=== PATIENT | male | born 1955 | race American Indian/Alaskan Native ===

== ENCOUNTER 2017-02-28 12:31 | Inpatient (IN) | payer MEDICARE, MEDICAID ==
[2017-02-28 12:37] VITALS: RESP 18
[2017-02-28 13:23] LABS: BASO # 0.1 K/uL (0.0-0.2); BASO % 1.5 % (0.0-2.0); EOS # 0.1 K/uL (0.0-0.7); EOS % 0.7 % (0.0-4.0); HEMATOCRIT 43.4 % (35.0-51.0); LYMPH # 2.1 K/uL (1.0-4.3); LYMPH % 27.2 % (20.0-40.0); MEAN CELL VOLUME 88.7 fL (80.0-94.0); MEAN CORPUSCULAR HEMOGLOBIN 29.2 pg (27.0-31.0); MEAN CORPUSCULAR HGB CONC 32.9 g/dL (33.0-37.0); MEAN PLATELET VOLUME 8.8 fL (7.2-11.7); MONO # 0.4 K/uL (0.0-0.8); MONO % 4.8 % (0.0-10.0); RED CELL DISTRIBUTION WIDTH 14.1 % (11.5-14.5); WHITE BLOOD COUNT 7.6 K/uL (4.8-10.8)
[2017-02-28 13:30] LABS: URINE BILIRUBIN NEGATIVE (NEGATIVE); URINE BLOOD NEGATIVE (NEGATIVE); URINE COLOR Yellow (YELLOW); URINE GLUCOSE (UA) NORMAL (Normal); URINE KETONE NEGATIVE (NEGATIVE); URINE LEUKOCYTE ESTERASE NEG Leu/uL (Negative); URINE PROTEIN NEGATIVE (NEGATIVE); URINE UROBILINOGEN NORMAL mg/dL (0.2-1.0); WBC URINE 1 /hpf (0-5)
[2017-02-28 13:35] LABS: CHLORIDE 105 mmol/L (98-107)
[2017-02-28 13:36] LABS: POTASSIUM 3.7 mmol/L (3.6-5.2); SODIUM 137 mmol/L (132-148)
[2017-02-28 13:38] LABS: ALB/GLOB RATIO 1.6 (1.0-2.1); BILIRUBIN,TOTAL 0.3 mg/dL (0.2-1.3); CARBON DIOXIDE 26 mmol/L (22-30); GFR AFRICAN-AMERICAN > 60
[2017-02-28 13:39] LABS: ALKALINE PHOSPHATASE 95 U/L (38-126); ALT/SGPT 36 U/L (21-72); AST/SGOT 28 U/L (17-59); BLOOD UREA NITROGEN 9 mg/dL (9-20); CALCIUM 9.4 mg/dl (8.6-10.4); GLUCOSE,RANDOM 89 mg/dL (75-110)
[2017-02-28 13:40] LABS: ALCOHOL SERUM < 10 mg/dl (0-10)
--- NOTE | 2017-02-28 13:49 | C.PDOC ---
History Of Present Illness 61 year old patient, with a past medical history of hypertension and HIV, presents to the ED requesting detox from alcohol. No complaints at this time. Denies SI, HI or other drug use. Time Seen by Provider: 02/28/17 13:00 Chief Complaint (Nursing): Substance Abuse History Per: Patient Severity: None Pain Scale Rating Of: 0 Recent travel outside of the [place]: No Past Medical History Reviewed: Historical Data, Nursing Documentation, Vital Signs Vital Signs: Last Vital Signs Temp 98 F 02/28/17 20:00 Pulse 76 02/28/17 20:00 Resp 18 02/28/17 20:00 BP 107/73 02/28/17 20:00 Pulse Ox 98 02/28/17 20:00 - Medical History PMH: HIV, HTN - [facility] Procedures ANESTH INJECT-SPIN CANAL (02/16/12) DETOXIFICATION SERVICES FOR SUBSTANCE ABUSE TREATMENT (02/28/17) INDIV PSYCHOTHERAPY FOR SUBSTANCE ABUSE TREATMENT, SUPPORT (02/28/17) INJECT STEROID (02/16/12) LUMBOSAC SPINE X-RAY NEC (02/16/12) SPINAL CANAL INJECT NEC (02/16/12) Family History: States: Unknown Family Hx - Social History Hx Tobacco Use: No Hx Alcohol Use: No (fORMER) Hx Substance Use: No - Immunization History Hx Tetanus Toxoid Vaccination: No Hx Influenza Vaccination: Yes Hx Pneumococcal Vaccination: Yes Review Of Systems Except As Marked, All Systems Reviewed And Found Negative. Psych: Positive for: Other (alcohol use) Physical Exam - Physical Exam Appears: Non-toxic, No Acute Distress Skin: Warm, Dry Head: Atraumatic, Normacephalic, No Tenderness, No Swelling Eye(s): bilateral: Normal Inspection Neck: Normal ROM, Supple Chest: Symmetrical Cardiovascular: Rhythm Regular Respiratory: Normal Breath Sounds, No Accessory Muscle Use, No Rales, No Rhonchi , No Wheezing Back: Normal Inspection, No CVA Tenderness Extremity: Normal ROM Neurological/Psych: Oriented x3, Normal Speech ED Course And Treatment - Laboratory Results Result Diagrams: 02/28/17 13:19 02/28/17 13:19 Lab Interpretation: No Acute Changes O2 Sat by Pulse Oximetry: 100 (room air) Pulse Ox Interpretation: Normal Medical Decision Making Medical Decision Making: Impression: 61 y/o male with Plan: * Labs * Crisis Evaluation * Reassess and disposition Progress: Labs ordered and reviewed. In my clinical judgment patient is medically cleared and stable for psychiatric admission. drying can worker contacted for evaluation. As per CW patient is to be admitted for detox under Dr Reed service for Alcohol use disorder severe Disposition - Disposition Disposition: HOSPITALIZED Disposition Time: 14:25 Condition: STABLE - POA Present On Arrival: None - Clinical Impression Clinical Impression: Alcohol dependence - PA / COLOR PRINTER OPERATOR / Resident Statement MD/DO has reviewed & agrees with the documentation as recorded. - Scribe Statement The provider has reviewed the documentation as recorded by the Scribe Rosi Kamara All medical record entries made by the Scribe were at my direction and personally dictated by me. I have reviewed the chart and agree that the record accurately reflects my personal performance of the history, physical exam, medical decision making, and the department course for this patient. I have also personally directed, reviewed, and agree with the discharge instructions and disposition. Decision To Admit - Pt Status Changed To: Hospital Disposition Of: Inpatient - Admit Certification Admit to Inpatient:: After my assessment, the patient will require hospitalization for at least two midnights. This is because of the severity of symptoms shown, intensity of services needed, and/or the medical risk in this patient being treated as an outpatient. - InPatient: Physician Admission Certification: I certify that this patient requires 2 or more midnights of care for the following reason:: patient is to be admitted for detox under Dr Reed service for Alcohol use disorder severe - . Bed Request Type: Detox Admitting Physician: Torrie Reed Patient Diagnosis: Alcohol dependence
[2017-02-28] MEDS ORDERED: Efavirenz/Emtricitabine/Teno 1 TAB PO SCH (22:00)
[2017-02-28 22:05] VITALS: BP 107/73; PULSE 76; TEMP 98
--- NOTE | 2017-03-01 08:45 | PCM.PSYCH ---
Initial Psychiatric Evaluation - Initial Psychiatric Evaluation Type of Admission: Voluntary Legal Status: Capacity Chief Complaint (in patient's own words): I came to get help History of Present Illness and Precipitating Events: Patient is a 61 year old AA male with a lifelong history of substance abuse ( which includes alcohol abuse while in grammar school) self-referred to [facility] for detox admission. Patient reports abusing marijuana , crack cocaine and alcohol. Patient last used last night. Patient states last night I knew I had to surrender. Patient reports he has tried to detox on his own but its not working. Patient has a history of AA involvement on and off for the past 9 years. Patient denies any psych history. Patient denies S/H/I. But states I am killing myself everyday with drugs and alcohol. Patient drinks varying amounts of alcohol daily. Yesterday he drank 4 cans of beer, LI Iced Tea, [place] and a couple of small bottles of Blackberry joyce. Patient smoked approximately $100 worth of cocaine yesterday as well. Patient reports he started using cocaine when he was 27 years old. Patient is beginning to experience withdrawal symptoms: anxiety, nausea/ vomiting and abdominal cramping. Patient was diagnosed HIV positive 30 years ago. He reports that his T-Cells are very Current Medications: Active Medications Generic Name Dose Route Start Last Admin Trade Name Erenq PRN Reason Stop Dose Admin Chlordiazepoxide 25 mg 02/28/17 18:00 03/01/17 06:30 Librium PO 03/04/17 17:59 25 mg Q6 TESFAYE Administration Taper Chlordiazepoxide 25 mg 02/28/17 15:50 02/28/17 16:27 Librium PO 25 mg Q4H PRN Administration Alcohol Withdrawal Clonidine HCl 0.1 mg 02/28/17 16:09 02/28/17 16:27 Catapres PO 0.1 mg Q8 PRN Administration alcohol withdrawal Efavirenz/Emtricitabine/Tenofovir 1 tab 02/28/17 22:00 02/28/17 22:05 Atripla 600 Mg-200 Mg-300 Mg PO 1 tab HS TESFAYE Administration Folic Acid 1 mg 03/01/17 10:00 Folic Acid PO DAILY TESFAYE Hydroxyzine HCl 25 mg 02/28/17 16:25 02/28/17 16:29 Atarax PO 25 mg Q6 PRN Administration Anxiety Lisinopril 20 mg 03/01/17 10:00 Zestril PO DAILY TESFAYE Multivitamins 1 tab 03/01/17 10:00 Hexavitamin PO DAILY TESFAYE Thiamine HCl 100 mg 03/01/17 10:00 Vitamin B1 Tab PO DAILY TESFAYE Trazodone HCl 50 mg 02/28/17 15:50 Desyrel PO HS PRN Insomnia Past Psychiatric History - Past Psychiatric History Previous Treatment History: Inpatient Pertinent Medical Hx (Current Medical&Sleep Prob, Allergies): Allergies Allergy/AdvReac Type Severity Reaction Status Date / Time No Known Allergies Allergy Verified 02/28/17 12:38 Efavirenz/Emtricitabine/Teno [Atripla 600 MG-200 MG-300 MG] 1 tab PO HS Lisinopril 20 mg PO DAILY 02/16/15 Loratadine [Claritin] 10 mg PO DAILY #30 tab 07/07/16 hydroCHLOROthiazide [Hydrodiuril] 25 mg PO DAILY 07/07/16 Review of Systems - Review of Systems All systems: reviewed and no additional remarkable complaints except - Psychiatric Psychiatric: Anxiety, Irritability Mental Status Examination - Personal Presentation Personal Presentation: Looks stated age - Affect Affect: Constricted - Motor Activity Motor Activity: Calm - Reliability in Providing Information Reliability in Providing Information: Good - Speech Speech: Organized - Mood Mood: Anxious - Formal Thought Process Formal Thought Process: No Impairment - Obsessions/Compulsions Obsessions: No Compulsions: No - Cognitive Functions Orientation: Person, Place, Situation Sensorium: Alert DSM 5 DX - DSM 5 DSM 5 Diagnosis: Alcohol use disorder severe Alcohol withdrawn Cocaine use disorder severe - Recommended/Plan of Treatment Treatment Recommendations and Plan of Treatment: Alcohol use disorder severe CBT Psychoeducation Supportive therapy, individual therapy Use WA for abstinence Alcohol withdrawal uncomplicated CBT Psychoeducation Supportive therapy, individual therapy Librium when necessary Start Librium taper Start folic acid/thiamine/multivitamin Cocaine use disorder severe Monitor signs and symptoms Use WA for abstinence HTN Monitor signs and symptoms HIV Monitor signs and symptoms - Smoking Cessation Smoking Cessation Initiated: No
[2017-03-01] MEDS ORDERED: Multiple Vitamins Tab PO SCH (10:00)
--- NOTE | 2017-03-01 10:48 | PCM.PYCHDC ---
Mental Status Examination - Mental Status Examination Orientation: Person, Place, Situation, Time Memory: Intact Mood: Neutral Affect: Broad Speech: Loud Attention: WNL Concentration: WNL Association: WNL Fund of Knowledge: WNL Formal Thought Process: No Impairment Description of patient's judgement and insight: partially impaired Psychotic Thoughts and Behaviors: denies any AVH Suicidal Ideation: No Current Homicidal Ideation?: No Discharge Summary - Discharge Note Reason for Hospitalization: Patient is a 61 year old AA male with a lifelong history of substance abuse ( which includes alcohol abuse while in grammar school) self-referred to [facility] for detox admission. Patient reports abusing marijuana , crack cocaine and alcohol. Patient last used last night. Patient states last night I knew I had to surrender. Patient reports he has tried to detox on his own but its not working. Patient has a history of AA involvement on and off for the past 9 years. Patient denies any psych history. Patient denies S/H/I. But states I am killing myself everyday with drugs and alcohol. Patient drinks varying amounts of alcohol daily. Yesterday he drank 4 cans of beer, LI Iced Tea, [place] and a couple of small bottles of Blackberry joyce. Patient smoked approximately $100 worth of cocaine yesterday as well. Patient reports he started using cocaine when he was 27 years old. Patient is beginning to experience withdrawal symptoms: anxiety, nausea/ vomiting and abdominal cramping. Patient was diagnosed HIV positive 30 years ago. He reports that his T-Cells are very Consultations:: List each consultation separately and include: 1. Reason for request. 2. Findings. 3. Follow-up Summary of Hospital Course include:: 1. Description of specific treatment plan utilized for patients during their course of treatmen. 2. Summarize the time- course for resolution of acute symptoms and/or regressed behaviors. 3. Describe issues identified and worked on during hospitalization. 4. Describe medication utilized. 5. Describe medical problems identified and treated. 6. Reassessment of suicide risk Summary of Hospital Course: During the course of his stay, pt started taking withdrawal medications but he signed himself out AMA. As per the patient he is doing much better and his withdrawal symptoms are getting better and he does not need 4 days detox. Patient remained calm and cooperative and denied any shakes, sweating or any other withdrawal symptoms. He denied any feelings of hopelessness, helplessness , and worthlessness. He denied any suicidal ideation or homicidal ideation, and denied any auditory or visual hallucinations. - Final Diagnosis (DSM 5) Condition upon Discharge: GOOD DSM 5: Alcohol use disorder severe Alcohol withdrawn Cocaine use disorder severe Disposition: AGAINST MEDICAL ADVICE Follow-up Treatment Plan: Education: Pt was educated and counseled about the risks and benefits of taking and not taking medications. Pt was educated and counseled about the risks of drinking and abusing drugs. Pt was educated and counseled to go to the ER or call 911 if pt develop suicidal ideation or homicidal ideation, worsening of symptoms or severe side effects of the meds. - Smoking Cessation Smoking Cessation Medication prescribed: No - Antipsychotic Medications Pt discharged on 2 or more routine antipsychotic medications: No
[2017-03-10 18:06] VITALS: O2SAT 100
== END 2017-03-01 08:45 | disposition left against medical advice (07) | DRG 894 ==
LOC: C.ER 12:31 → C.7D 14:27
PROVIDERS: ADMIT Psychiatry & Neurology Psychiatry; ATTEND Psychiatry & Neurology Psychiatry
PROC: HZ2ZZZZ Detoxification Services for Substance Abuse Treatment (ICD-10-PCS; principal; 2017-02-28)
PROC: HZ59ZZZ Individual Psychotherapy for Substance Abuse Treatment, Supportive (ICD-10-PCS; 2017-02-28)
DX: F10.230 Alcohol dependence with withdrawal, uncomplicated (principal); F14.20 Cocaine dependence, uncomplicated; I10 Essential (primary) hypertension; F12.10 Cannabis abuse, uncomplicated; Z21 Asymptomatic human immunodeficiency virus [HIV] infection status

== ENCOUNTER 2017-03-12 11:46 | Emergency (ER) | payer MEDICARE, MEDICAID | END 2017-03-12 12:30 | disposition home or self-care (01) | LOC: C.ER 11:46 | DX: F10.20 Alcohol dependence, uncomplicated (principal); F14.20 Cocaine dependence, uncomplicated; Y90.9 Presence of alcohol in blood, level not specified ==

== ENCOUNTER 2017-03-13 11:54 | Emergency (ER) | payer MEDICARE, MEDICAID ==
[2017-03-13 11:58] VITALS: BP 124/82; PULSE 71; RESP 16; TEMP 97.6; O2SAT 98
--- NOTE | 2017-03-13 12:55 | C.PDOC ---
History Of Present Illness 61-year-old male, presents to the emergency department with requesting detox from alcohol. Patients last drink was last night. He also notes using cocaine. Denies vomiting, withdrawal, SI/HI. Time Seen by Provider: 03/13/17 12:25 Chief Complaint (Nursing): Substance Abuse History Per: Patient Current Symptoms Are (Timing): Still Present Modifying Factor(s): Alcohol, Cocaine Past Medical History Reviewed: Historical Data, Nursing Documentation, Vital Signs Vital Signs: Last Vital Signs Temp 97.6 F 03/13/17 11:57 Pulse 71 03/13/17 11:57 Resp 16 03/13/17 11:57 BP 124/82 03/13/17 11:57 Pulse Ox 98 03/13/17 12:56 - Medical History PMH: HIV, HTN Denies: Diabetes, Hepatitis, Seizures, Sexually Transmitted Disease - [facility] Procedures ANESTH INJECT-SPIN CANAL (02/16/12) DETOXIFICATION SERVICES FOR SUBSTANCE ABUSE TREATMENT (02/28/17) INDIV PSYCHOTHERAPY FOR SUBSTANCE ABUSE TREATMENT, SUPPORT (02/28/17) INJECT STEROID (02/16/12) LUMBOSAC SPINE X-RAY NEC (02/16/12) SPINAL CANAL INJECT NEC (02/16/12) Family History: States: No Known Family Hx - Social History Hx Tobacco Use: No Hx Alcohol Use: Yes Hx Substance Use: Yes - Immunization History Hx Tetanus Toxoid Vaccination: No Hx Influenza Vaccination: Yes Hx Pneumococcal Vaccination: Yes Review Of Systems Except As Marked, All Systems Reviewed And Found Negative. Constitutional: Negative for: Fever Cardiovascular: Negative for: Chest Pain Respiratory: Negative for: Shortness of Breath Gastrointestinal: Negative for: Vomiting Psych: Negative for: Suicidal ideation Physical Exam - Physical Exam Appears: Non-toxic, No Acute Distress Skin: Warm, Dry, No Rash Eye(s): bilateral: Normal Inspection Oral Mucosa: Moist Lips: Normal Appearing Neck: Normal ROM Respiratory: No Accessory Muscle Use Extremity: Normal ROM Neurological/Psych: Oriented x3 ED Course And Treatment O2 Sat by Pulse Oximetry: 98 Pulse Ox Interpretation: Normal Medical Decision Making Medical Decision Making: Case was discussed w/ poultry husbandry worker, who states that there are no detox beds available. Additionally patient had signed out AMA from detox last week. poultry husbandry worker speaks with patient at bedside and made aware he is ineligible for detox at this time. Pt will be discharged w/ a list of detox programs, and information for the detox co-ordinator/instructions Disposition Counseled Patient/Family Regarding: Need For Followup - Disposition Disposition: HOME/ ROUTINE Disposition Time: 12:50 Condition: STABLE Instructions: Polysubstance Abuse (ED) - POA Present On Arrival: None - Clinical Impression Clinical Impression: Alcohol dependence - Scribe Statement The provider has reviewed the documentation as recorded by the Issa Mitchell All medical record entries made by the Issa were at my direction and personally dictated by me. I have reviewed the chart and agree that the record accurately reflects my personal performance of the history, physical exam, medical decision making, and the department course for this patient. I have also personally directed, reviewed, and agree with the discharge instructions and disposition.
== END 2017-03-13 12:50 | disposition home or self-care (01) ==
LOC: C.ER 11:54
DX: F10.20 Alcohol dependence, uncomplicated (principal); F14.10 Cocaine abuse, uncomplicated; Y90.9 Presence of alcohol in blood, level not specified

== ENCOUNTER 2017-03-14 12:11 | Observation (INO) | payer MEDICARE, MEDICAID ==
[2017-03-14] MEDS ORDERED: Sodium Chloride 0.9% 1,000 ML IV ONE (12:47)
[2017-03-14] MEDS ORDERED: Sodium Chloride 0.9% 1,000 ML ONE (13:03)
[2017-03-14 13:05] LABS: BASO # 0.1 K/uL (0.0-0.2); BASO % 0.9 % (0.0-2.0); EOS % 0.5 % (0.0-4.0); HEMATOCRIT 42.7 % (35.0-51.0); LYMPH # 1.5 K/uL (1.0-4.3); LYMPH % 25.3 % (20.0-40.0); MEAN CELL VOLUME 88.3 fL (80.0-94.0); MEAN CORPUSCULAR HEMOGLOBIN 29.1 pg (27.0-31.0); MEAN CORPUSCULAR HGB CONC 32.9 g/dL (33.0-37.0); MEAN PLATELET VOLUME 8.5 fL (7.2-11.7); MONO # 0.3 K/uL (0.0-0.8); MONO % 5.4 % (0.0-10.0); NRBC % 0.1 % (0.0-2.0); RED CELL DISTRIBUTION WIDTH 14.1 % (11.5-14.5); WHITE BLOOD COUNT 5.8 K/uL (4.8-10.8)
[2017-03-14 13:10] LABS: CHLORIDE 105 mmol/L (98-107); SODIUM 138 mmol/L (132-148)
[2017-03-14 13:11] LABS: POTASSIUM 4.1 mmol/L (3.6-5.2)
[2017-03-14 13:13] LABS: ALB/GLOB RATIO 1.5 (1.0-2.1); ALKALINE PHOSPHATASE 91 U/L (38-126); ALT/SGPT 24 U/L (21-72); AST/SGOT 20 U/L (17-59); BILIRUBIN,TOTAL 0.5 mg/dL (0.2-1.3); BLOOD UREA NITROGEN 14 mg/dL (9-20); CALCIUM 8.3 mg/dl (8.6-10.4); CARBON DIOXIDE 23 mmol/L (22-30); GFR AFRICAN-AMERICAN > 60; GLUCOSE,RANDOM 83 mg/dL (75-110); TOTAL PROTEIN 6.5 g/dL (6.3-8.3)
[2017-03-14 13:14] LABS: ALCOHOL SERUM < 10 mg/dl (0-10)
--- NOTE | 2017-03-14 13:36 | C.PDOC ---
History Of Present Illness 61 y/o male that sent to the emergency department by Dr. Enciso, for evaluation of cough, nausea, and epigastric abdominal pain for the past several days. Patient has history of alcohol and cocaine abuse, and states last use was yesterday. He denies tremors, chest pain, palpitations, shortness of breath , cough, vomiting, diarrhea, fever/chills. Time Seen by Provider: 03/14/17 12:36 Chief Complaint (Nursing): Abdominal Pain History Per: Patient History/Exam Limitations: no limitations Onset/Duration Of Symptoms: Days (several days) Current Symptoms Are (Timing): Still Present Location Of Pain/Discomfort: Epigastric Radiation Of Pain To:: None Quality Of Discomfort: "Pain" Associated Symptoms: Nausea, Vomiting. denies: Fever, Chills, Diarrhea, Loss Of Appetite, Back Pain, Chest Pain, Constipation, Urinary Symptoms Exacerbating Factors: None Alleviating Factors: None Recent travel outside of the [place]: No Additional History Per: Patient Past Medical History Reviewed: Historical Data, Nursing Documentation, Vital Signs Vital Signs: Last Vital Signs Temp 97.3 F L 03/16/17 07:49 Pulse 56 L 03/16/17 07:49 Resp 20 03/16/17 07:49 BP 156/92 H 03/16/17 07:49 Pulse Ox 100 03/27/17 07:38 - Medical History PMH: HIV, HTN Denies: Diabetes, Hepatitis, Seizures, Sexually Transmitted Disease - [facility] Procedures ANESTH INJECT-SPIN CANAL (02/16/12) DETOXIFICATION SERVICES FOR SUBSTANCE ABUSE TREATMENT (02/28/17) INDIV PSYCHOTHERAPY FOR SUBSTANCE ABUSE TREATMENT, SUPPORT (02/28/17) INJECT STEROID (02/16/12) LUMBOSAC SPINE X-RAY NEC (02/16/12) SPINAL CANAL INJECT NEC (02/16/12) Family History: States: No Known Family Hx - Social History Hx Tobacco Use: No Hx Alcohol Use: Yes (fORMER) Hx Substance Use: Yes - Immunization History Hx Tetanus Toxoid Vaccination: Yes Hx Influenza Vaccination: Yes Hx Pneumococcal Vaccination: No Review Of Systems Except As Marked, All Systems Reviewed And Found Negative. Constitutional: Negative for: Fever, Chills Cardiovascular: Negative for: Chest Pain, Palpitations Respiratory: Negative for: Cough, Shortness of Breath Gastrointestinal: Positive for: Nausea, Vomiting, Abdominal Pain (epigastric). Negative for: Diarrhea, Constipation, Hematemesis Genitourinary: Negative for: Dysuria, Frequency, Hematuria Musculoskeletal: Negative for: Back Pain Physical Exam - Physical Exam Appears: Non-toxic, No Acute Distress, Other (comfortable) Skin: Normal Color, Warm, Dry Head: Atraumatic, Normacephalic Eye(s): bilateral: Normal Inspection, EOMI Neck: Normal ROM, Supple Chest: Symmetrical, No Tenderness Cardiovascular: Rhythm Regular, No Murmur Respiratory: Normal Breath Sounds, No Rales, No Rhonchi, No Wheezing Gastrointestinal/Abdominal: Soft, Tenderness (mild epigastric), No Guarding, No Rebound, Other ((-) Villatoro's) Back: No CVA Tenderness Extremity: Normal ROM Neurological/Psych: Oriented x3, Normal Speech, Normal Cognition ED Course And Treatment - Laboratory Results Result Diagrams: 03/14/17 12:59 03/14/17 12:59 ECG: Interpreted By Me, Viewed By Me (NSR 61 bpm, normal axis, ST elevations in V2, V3 due to early repol - unchanged from prior EKG, no acute ST/T wave changes ) ECG Interpretation: No Acute Changes O2 Sat by Pulse Oximetry: 100 (on RA) Pulse Ox Interpretation: Normal - Other Rad CXR X-Ray: Viewed By Me, Read By Radiologist Interpretation: FINDINGS: LUNGS: Mild venous congestion. Minimal atelectatic changes at the right lung base. PLEURA: Minimal blunting of the left costophrenic angle which may represent trace effusion versus pleural thickening. CARDIOVASCULAR: Normal. OSSEOUS STRUCTURES: No significant abnormalities. VISUALIZED UPPER ABDOMEN: Normal. OTHER FINDINGS: None. IMPRESSION: Mild venous congestion. Minimal atelectatic changes at the right lung base. Minimal blunting of the left costophrenic angle which may represent trace effusion versus pleural thickening. Progress Note: Blood work, UA, UDS ordered and reviewed. Patient given IV NS bolus, IV pepcid, IV zofran. Patient made aware that no detox beds are available at this time. - Physician Consult Information Physician Contacted: Mark Enciso Outcome Of Conversation: Discussed patient with Dr. Enciso, he agrees with obs to his service for alcohol/cocaine dependence. Pyschiatric consult entered. Disposition - Disposition Disposition: HOSPITALIZED Disposition Time: 13:33 Condition: STABLE - Clinical Impression Clinical Impression: Alcohol dependence, Cocaine dependence, Epigastric abdominal pain - Scribe Statement The provider has reviewed the documentation as recorded by the Luisibe Jonh Kamara Provider Attestation: All medical record entries made by the Issa were at my direction and personally dictated by me. I have reviewed the chart and agree that the record accurately reflects my personal performance of the history, physical exam, medical decision making, and the department course for this patient. I have also personally directed, reviewed, and agree with the discharge instructions and disposition. Decision To Admit - Pt Status Changed To: Hospital Disposition Of: Observation - . Bed Request Type: Regular Admitting Physician: Mark Enciso Patient Diagnosis: Alcohol dependence, Cocaine dependence, Epigastric abdominal pain
[2017-03-14 13:37] LABS: RBC URINE 1 /hpf (0-3); URINE BILIRUBIN NEGATIVE (NEGATIVE); URINE BLOOD NEGATIVE (NEGATIVE); URINE COLOR Yellow (YELLOW); URINE GLUCOSE (UA) NORMAL (Normal); URINE KETONE NEGATIVE (NEGATIVE); URINE LEUKOCYTE ESTERASE NEG Leu/uL (Negative); URINE PROTEIN NEGATIVE (NEGATIVE); URINE UROBILINOGEN NORMAL mg/dL (0.2-1.0)
[2017-03-14 13:48] LABS: WBC URINE 5 /hpf (0-5)
--- NOTE | 2017-03-14 14:03 | RAD ---
PROCEDURE: CHEST RADIOGRAPH, 1 VIEW HISTORY: eval COMPARISON: None available. FINDINGS: LUNGS: Mild venous congestion. Minimal atelectatic changes at the right lung base. PLEURA: Minimal blunting of the left costophrenic angle which may represent trace effusion versus pleural thickening. CARDIOVASCULAR: Normal. OSSEOUS STRUCTURES: No significant abnormalities. VISUALIZED UPPER ABDOMEN: Normal. OTHER FINDINGS: None. IMPRESSION: Mild venous congestion. Minimal atelectatic changes at the right lung base. Minimal blunting of the left costophrenic angle which may represent trace effusion versus pleural thickening.
[2017-03-14] MEDS: Dextrose 5%/0.45% NS 1,000 ML IV SCH (16:20)
--- NOTE | 2017-03-14 16:39 | PCM.PSYCH ---
Initial Psychiatric Evaluation - Initial Psychiatric Evaluation Legal Status: Capacity Chief Complaint (in patient's own words): Pt WAS ADMITTED FOR EPIGASTRIC PAIN. i NEED TO TAKE CARE OF WHAT IS WRONG WITH ME NOW. Patient's Reaction to Hospitalization: I FEEL BETTER History of Present Illness and Precipitating Events: PT IS 61 YEAR OLD SINGLE, DOMICILED, RETIRED BLACK MALE WHO SUFFERS FROM HIV. PT ALSO USES COCAINE AND ALCOHOL. PT STARTED DRINKING AGE V16 BUT STATES ALCOHOL BECAME A PROBLEM ABOUT 5-7 YEARS AGO. PT DRINKS SEVERAL CANS OF BEER AND SOME SHOTS OF HARD LIQUOR. PT ALSO USES COCAINE. HE SPENDS ABOUT 200 DOLLARS A DAY. HE STARTED USING COCAINE [id number] YEARS AGO. PT HAS BEEN IN REHAB TWICE AT THE SAME PLACE, [facility] [place], ABOUT 17 YEARS APART. PT'S LONGEST PERIOD OF SOBRIETY WAS 57 MONTHS. PT ATTENDS AA AND NA MEETINGS. HE WANTS TO GET A NEW SPONSOR. PT HAS NO LEGAL, , OR PSYCHIATRIC HISTORY. HE WENT UP TO 10TH GRADE. 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 PT'S FATHER IS AND MOTHER IS LIVING. PT HAD 2 BROTHERS BUT BOTH OF THEM ARE . PT HAS NO CHILDREN Current Medications: Active Medications Generic Name Dose Route Start Last Admin Trade Name Freq PRN Reason Stop Dose Admin Chlordiazepoxide 0 mg 03/14/17 18:00 Librium PO 03/18/17 17:59 Q6 TESFAYE Taper Chlordiazepoxide 25 mg 03/14/17 14:50 Librium PO Q4H PRN Alcohol Withdrawal Clonidine HCl 0.1 mg 03/14/17 16:00 03/14/17 16:20 Catapres PO 0.1 mg Q8H TESFAYE Administration Enoxaparin Sodium 40 mg 03/15/17 10:00 Lovenox SC DAILY TESFAYE Dextrose/Sodium Chloride 1,000 mls @ 100 mls/hr 03/14/17 16:00 03/14/17 16:20 Dextrose 5%/0.45% Ns 1000 Ml IV 100 mls/hr .Q10H TESFAYE Administration Past Psychiatric History - Past Psychiatric History Previous Treatment History: None Pertinent Medical Hx (Current Medical&Sleep Prob, Allergies): Allergies Allergy/AdvReac Type Severity Reaction Status Date / Time No Known Allergies Allergy Verified 03/14/17 12:39 Efavirenz/Emtricitabine/Teno [Atripla 600 MG-200 MG-300 MG] 1 tab PO HS Lisinopril 20 mg PO DAILY 02/16/15 Loratadine [Claritin] 10 mg PO DAILY #30 tab 07/07/16 hydroCHLOROthiazide [Hydrodiuril] 25 mg PO DAILY 07/07/16 Review of Systems - Constitutional Constitutional: Malaise - EENT Eyes: UNREMARKABLE Ears: UNREMARKABLE Nose/Mouth/Throat: UNREMARKABLE - Cardiovascular Cardiovascular: UNREMARKABLE - Respiratory Respiratory: UNREMARKABLE - Gastrointestinal Gastrointestinal: Abdominal Pain - Genitourinary Genitourinary: UNREMARKABLE - Reproductive: Male Reproductive:Male: UNREMARKABLE - Musculoskeletal Musculoskeletal: UNREMARKABLE - Integumentary Integumentary: UNREMARKABLE - Neurological Neurological: UNREMARKABLE - Psychiatric Psychiatric: UNREMARKABLE - Endocrine Endocrine: UNREMARKABLE - Hematologic/Lymphatic Hematologic: UNREMARKABLE Mental Status Examination - Personal Presentation Personal Presentation: Looks older than stated age - Affect Affect: Broad - Motor Activity Motor Activity: Calm - Reliability in Providing Information Reliability in Providing Information: Good - Speech Speech: Organized, Coherent - Mood Mood: Neutral - Formal Thought Process Formal Thought Process: No Impairment - Obsessions/Compulsions Obsessions: No Compulsions: No - Cognitive Functions Orientation: Person, Place, Situation, Time Sensorium: Alert Attention/Concentration: Attentive, Can do serial 7 subdractions Abstract Thinking: As evidence by abstract perception of proverbs Judgement: Intact, as evidence by: Insight regarding need for hospitalization Memory: Recent intact, as evidence by: Ability to recall events of the day, Remote intact, as evidenced by: Ability to recall historical events - Risk Risk: Seizure, Withdrawal - Strength & Assets Inventory Strength & Assets Inventory: Family support, Employment history - Limitations Limitations: Living alone DSM 5 DX - DSM 5 DSM 5 Diagnosis: ALCOHOL USE DISORDER 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
[2017-03-15] MEDS: Dextrose 5%/0.45% NS 1,000 ML IV SCH ×3 (01:05→22:18)
[2017-03-15 09:15] VITALS: RESP 20
[2017-03-15] MEDS ORDERED: Enoxaparin 40 mg Syringe SC SCH (10:00)
[2017-03-15] MEDS ORDERED: Efavirenz/Emtricitabine/Teno 1 TAB PO SCH (14:52)
[2017-03-16 07:52] VITALS: BP 156/92; PULSE 56; TEMP 97.3; O2SAT 100
[2017-03-16] MEDS: Dextrose 5%/0.45% NS 1,000 ML IV SCH (07:54)
[2017-03-16] MEDS ORDERED: Pneumococcal 23-Valent Vaccine IM ONE (10:00)
--- NOTE | 2017-03-16 14:17 | CARD ---
APPROVED REPORT EKG Measurement Heart [id number] <Conclusion> Normal sinus rhythm ST elevation, probably due to early repolarization Borderline ECG
--- NOTE | 2017-03-16 17:57 | CP.PCM.PN ---
Subjective - Date & Time of Evaluation Date of Evaluation: 03/16/17 Time of Evaluation: 08:00 - Subjective Subjective: alert, orientedx3, NAD. Objective - Vital Signs/Intake and Output Vital Signs (last 24 hours): Temp Pulse Resp BP Pulse Ox 97.3 F L 56 L 20 156/92 H 100 03/16/17 07:49 03/16/17 07:49 03/16/17 07:49 03/16/17 07:49 03/16/17 07:49 Intake and Output: 03/16/17 03/16/17 06:59 18:59 Intake Total 1800 Output Total 600 Balance 1200 Assessment and Plan - Assessment and Plan (Free Text) Assessment: Patient is seen and examined. Denies sob or chest pains, no acute distress. D/W DR Enciso, discharge plan for today advised to f/u in the office in 1 week.
--- NOTE | 2017-03-16 22:47 | CP.PCM.HP ---
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 Patient has history of alcohol, and cocaine abuse, and states last use was yesterday. Otherwise, denies any tremor, chest pain, palpitations, shortness of breath, cough, diarrhea, fever, chills, or any other associated symptoms at this time. Present on Admission - Present on Admission Any Indicators Present on Admission: No Review of Systems - Review of Systems Systems not reviewed;Unavailable: Acuity of Condition, Intoxicated - Constitutional Constitutional: Fatigue, Lethargy, Weakness - EENT Eyes: absent: As Per HPI, Blind Spots, Blurred Vision, Change in Vision, Decreased Night Vision, Diplopia, Discharge, Dry Eye, Exophthalmos, Floaters, Irritation, Itchy Eyes, Loss of Peripheral Vision, Pain, Photophobia, Requires Corrective Lenses, Sees Flashes, Spots in Vision, Tunnel Vision, Other Visual Disturbances, Loss of Vision, Other Nose/Mouth/Throat: Nasal Congestion - Respiratory Respiratory: Cough, Chest Congestion - Gastrointestinal Gastrointestinal: Abdominal Pain, Nausea - Musculoskeletal Musculoskeletal: Back Pain, Muscle Weakness, Myalgias - Psychiatric Psychiatric: Anxiety, Depression, Irritability Past Patient History - Infectious Disease Hx of Infectious Diseases: None - Past Medical History & Family History Past Medical History?: Yes - Past Social History Smoking Status: Light Smoker < 10 Cigarettes Daily - CARDIAC Hx Hypertension: Yes - PULMONARY Hx Tuberculosis: No - NEUROLOGICAL Hx Seizures: No - HEMATOLOGICAL/ONCOLOGICAL Hx Human Immunodeficiency Virus (HIV): Yes - MUSCULOSKELETAL/RHEUMATOLOGICAL Hx Falls: No - GENITOURINARY/GYNECOLOGICAL Hx Sexually Transmitted Disorders: No - PSYCHIATRIC Hx Substance Use: Yes - SURGICAL HISTORY Hx Surgeries: No - ANESTHESIA Hx Anesthesia: No Hx Anesthesia Reactions: No Hx Malignant Hyperthermia: No Meds Allergies/Adverse Reactions: Allergies Allergy/AdvReac Type Severity Reaction Status Date / Time No Known Allergies Allergy Verified 03/14/17 12:39 Physical Exam - Constitutional Appears: No Acute Distress - Head Exam Head Exam: ATRAUMATIC, NORMAL INSPECTION, NORMOCEPHALIC - Eye Exam Eye Exam: EOMI, Normal appearance, PERRL Pupil Exam: NORMAL ACCOMODATION, PERRL - ENT Exam ENT Exam: Mucous Membranes Moist, Normal Exam - Cardiovascular Exam Cardiovascular Exam: REGULAR RHYTHM - GI/Abdominal Exam GI & Abdominal Exam: Normal Bowel Sounds, Soft. absent: Tenderness - Psychiatric Exam Psychiatric exam: Anxious Additional comments: restless mood is elated Results - Vital Signs Recent Vital Signs: Last Vital Signs Temp 97.3 F L 03/16/17 07:49 Pulse 56 L 03/16/17 07:49 Resp 20 03/16/17 07:49 BP 156/92 H 03/16/17 07:49 Pulse Ox 100 03/16/17 07:49 - Labs Result Diagrams: 03/14/17 12:59 03/14/17 12:59 Labs: Laboratory Results - last 24 hr 03/14/17 03/15/17 21:32 16:08 POC Glucose (mg/dL) 96 97 Assessment & Plan (1) Gastroenteritis Status: Acute (2) Alcohol withdrawal Status: Acute Comment: consult for detox
--- NOTE | 2017-03-16 22:52 | CP.PCM.PN ---
Subjective - Date & Time of Evaluation Date of Evaluation: 03/15/17 Time of Evaluation: 07:35 - Subjective Subjective: Pt seen & evaluated at bedside, is doing well, also seen by psych Objective - Vital Signs/Intake and Output Vital Signs (last 24 hours): Temp Pulse Resp BP Pulse Ox 97.3 F L 56 L 20 156/92 H 100 03/16/17 07:49 03/16/17 07:49 03/16/17 07:49 03/16/17 07:49 03/16/17 07:49 - Constitutional Appears: No Acute Distress - Eye Exam Eye Exam: EOMI, Normal appearance, PERRL Pupil Exam: NORMAL ACCOMODATION, PERRL - ENT Exam ENT Exam: Mucous Membranes Moist, Normal Exam - Respiratory Exam Respiratory Exam: Clear to Ausculation Bilateral, NORMAL BREATHING PATTERN - Cardiovascular Exam Cardiovascular Exam: REGULAR RHYTHM, +S1, +S2. absent: Murmur - GI/Abdominal Exam GI & Abdominal Exam: Soft, Normal Bowel Sounds. absent: Tenderness Assessment and Plan (1) Gastroenteritis Status: Acute (2) Alcohol withdrawal Status: Acute
--- NOTE | 2017-03-16 22:53 | CP.PCM.DIS ---
Provider - Provider Date of Admission: 03/14/17 13:33 Attending physician: Mark Enciso MD Time Spent in preparation of Discharge (in minutes): 30 Diagnosis - Discharge Diagnosis (1) Gastroenteritis Status: Acute (2) Alcohol withdrawal Status: Acute Hospital Course - Lab Results Lab Results: Most Recent Lab Values WBC 5.8 K/uL (4.8-10.8) 03/14/17 12:59 RBC 4.84 Mil/uL (4.40-5.90) 03/14/17 12:59 Hgb 14.1 g/dL (12.0-18.0) 03/14/17 12:59 Hct 42.7 % (35.0-51.0) 03/14/17 12:59 MCV 88.3 fL (80.0-94.0) 03/14/17 12:59 MCH 29.1 pg (27.0-31.0) 03/14/17 12:59 MCHC 32.9 g/dL (33.0-37.0) L 03/14/17 12:59 RDW 14.1 % (11.5-14.5) 03/14/17 12:59 Plt Count 202 K/uL (130-400) 03/14/17 12:59 MPV 8.5 fL (7.2-11.7) 03/14/17 12:59 Neut % (Auto) 67.9 % (50.0-75.0) 03/14/17 12:59 Lymph % (Auto) 25.3 % (20.0-40.0) 03/14/17 12:59 [place] % (Auto) 5.4 % (0.0-10.0) 03/14/17 12:59 Eos % (Auto) 0.5 % (0.0-4.0) 03/14/17 12:59 Baso % (Auto) 0.9 % (0.0-2.0) 03/14/17 12:59 Neut # 3.9 K/uL (1.8-7.0) 03/14/17 12:59 Lymph # 1.5 K/uL (1.0-4.3) 03/14/17 12:59 [place] # 0.3 K/uL (0.0-0.8) 03/14/17 12:59 Eos # 0.0 K/uL (0.0-0.7) 03/14/17 12:59 Baso # 0.1 K/uL (0.0-0.2) 03/14/17 12:59 Sodium 138 mmol/L (132-148) 03/14/17 12:59 Potassium 4.1 mmol/L (3.6-5.2) 03/14/17 12:59 Chloride 105 mmol/L (98-107) 03/14/17 12:59 Carbon Dioxide 23 mmol/L (22-30) 03/14/17 12:59 Anion Gap 14 (10-20) 03/14/17 12:59 BUN 14 mg/dL (9-20) 03/14/17 12:59 Creatinine 0.6 MG/DL (0.8-1.5) L 03/14/17 12:59 Est GFR ( Amer) > 60 03/14/17 12:59 Est GFR (Non-Af Amer) > 60 03/14/17 12:59 POC Glucose (mg/dL) 97 mg/dL (65-110) 03/15/17 16:08 Random Glucose 83 mg/dL (75-110) 03/14/17 12:59 Calcium 8.3 mg/dl (8.6-10.4) L 03/14/17 12:59 Total Bilirubin 0.5 mg/dL (0.2-1.3) 03/14/17 12:59 AST 20 U/L (17-59) 03/14/17 12:59 ALT 24 U/L (21-72) 03/14/17 12:59 Alkaline Phosphatase 91 U/L (38-126) 03/14/17 12:59 Total Protein 6.5 g/dL (6.3-8.3) 03/14/17 12:59 Albumin 3.9 g/dL (3.5-5.0) 03/14/17 12:59 Globulin 2.6 gm/dL (2.2-3.9) 03/14/17 12:59 Albumin/Globulin Ratio 1.5 (1.0-2.1) 03/14/17 12:59 Lipase 36 U/L (23-300) 03/14/17 12:59 Urine Color Yellow (YELLOW) 03/14/17 13:16 Urine Clarity Clear (Clear) 03/14/17 13:16 Urine pH 6.0 (5.0-8.0) 03/14/17 13:16 Ur Specific [place] 1.023 (1.003-1.030) 03/14/17 13:16 Urine Protein Negative mg/dL (NEGATIVE) 03/14/17 13:16 Urine Glucose (UA) Normal mg/dL (Normal) 03/14/17 13:16 Urine Ketones Negative mg/dL (NEGATIVE) 03/14/17 13:16 Urine Blood Negative (NEGATIVE) 03/14/17 13:16 Urine Nitrate Negative (NEGATIVE) 03/14/17 13:16 Urine Bilirubin Negative (NEGATIVE) 03/14/17 13:16 Urine Urobilinogen Normal mg/dL (0.2-1.0) 03/14/17 13:16 Ur Leukocyte Esterase Neg [place]/uL (Negative) 03/14/17 13:16 Urine WBC (Auto) 5 /hpf (0-5) 03/14/17 13:16 Urine RBC (Auto) 1 /hpf (0-3) 03/14/17 13:16 Ur Squamous Epith Cells 2 /hpf (0-5) 03/14/17 13:16 Urine Opiates Screen Negative (NEGATIVE) 03/14/17 13:16 Urine Methadone Screen Negative (NEGATIVE) 03/14/17 13:16 Ur Barbiturates Screen Negative (NEGATIVE) 03/14/17 13:16 Ur Phencyclidine Scrn Negative (NEGATIVE) 03/14/17 13:16 Ur Amphetamines Screen Negative (NEGATIVE) 03/14/17 13:16 U Benzodiazepines Scrn Positive (NEGATIVE) 03/14/17 13:16 U Oth Cocaine Metabols Positive (NEGATIVE) 03/14/17 13:16 U Cannabinoids Screen Positive (NEGATIVE) 03/14/17 13:16 Alcohol, Quantitative < 10 mg/dl (0-10) 03/14/17 12:59 - Hospital Course Hospital Course: Pt is ready for discharge will follow up outpatient Discharge Exam - Head Exam Head Exam: ATRAUMATIC, NORMAL INSPECTION, NORMOCEPHALIC - Eye Exam Eye Exam: Normal appearance - ENT Exam ENT Exam: Mucous Membranes Moist - Respiratory Exam Respiratory Exam: Clear to PA & Lateral - Cardiovascular Exam Cardiovascular Exam: REGULAR RHYTHM - GI/Abdominal Exam GI & Abdominal Exam: Normal Bowel Sounds - Rectal Exam Rectal Exam: Deferred Discharge Plan - Follow Up Plan Condition: STABLE Disposition: HOME/ ROUTINE Instructions: How to Stop Smoking (DC), Heart Healthy Diet (DC), Cocaine Abuse (DC), Alcohol Intoxication (DC), Abuse of Alcohol (DC) Referrals: Mark Enciso MD [Staff Provider] -
== END 2017-03-16 10:20 | disposition home or self-care (01) ==
LOC: C.ER 12:11 → C.9E 13:33 → C.3T 14:24
PROVIDERS: ADMIT Internal Medicine; ATTEND Internal Medicine
DX: F10.230 Alcohol dependence with withdrawal, uncomplicated (principal); F14.90 Cocaine use, unspecified, uncomplicated; I10 Essential (primary) hypertension; F19.10 Other psychoactive substance abuse, uncomplicated; F12.10 Cannabis abuse, uncomplicated
CPT/HCPCS: 71010; 80053; 81001; 82948; 83690; 85025; 93005; 96361; 96372; 96374; 96375; 99285; G0378; G0480; J1650; J2405; J7040; J7042

== ENCOUNTER 2018-03-12 09:14 | Emergency (ER) | payer MEDICARE ==
[2018-03-12 09:22] VITALS: O2SAT 100
[2018-03-12] MEDS ORDERED: Sodium Chloride 0.9% 1,000 ML IV STA (09:36)
[2018-03-12] MEDS ORDERED: Sodium Chloride 0.9% 1,000 ML ONE (09:50)
--- NOTE | 2018-03-12 10:04 | C.PDOC ---
History Of Present Illness Patient is a 62 y/o male who presents to the ED with a complaint of a headache for the last 3 weeks. Patient's mother sts she is concerned because he looks intoxicated on and off, but denying using drugs/alcohol. Patient reports to have gone to [facility] [place] but the waiting time was too long, prompting visit. Patient denies any other physical complaints at this time. Time Seen by Provider: 03/12/18 09:27 Chief Complaint (Nursing): Headache History Per: Patient History/Exam Limitations: no limitations Onset/Duration Of Symptoms: Days Current Symptoms Are (Timing): Still Present Recent travel outside of the [place]: No Past Medical History Reviewed: Historical Data, Nursing Documentation, Vital Signs Vital Signs: Last Vital Signs Temp 97.7 F 03/12/18 12:09 Pulse 54 L 03/12/18 12:09 Resp 20 03/12/18 12:09 BP 121/73 03/12/18 12:09 Pulse Ox 100 03/12/18 12:18 - Medical History PMH: HIV, HTN Denies: Diabetes, Hepatitis, Seizures, Sexually Transmitted Disease Surgical History: No Surg Hx - [facility] Procedures ANESTH INJECT-SPIN CANAL (02/16/12) DETOXIFICATION SERVICES FOR SUBSTANCE ABUSE TREATMENT (02/28/17) INDIV PSYCHOTHERAPY FOR SUBSTANCE ABUSE TREATMENT, SUPPORT (02/28/17) INJECT STEROID (02/16/12) LUMBOSAC SPINE X-RAY NEC (02/16/12) SPINAL CANAL INJECT NEC (02/16/12) Family History: States: No Known Family Hx - Social History Hx Tobacco Use: Yes (light smoker) Hx Alcohol Use: Yes (fORMER) Hx Substance Use: Yes - Immunization History Hx Tetanus Toxoid Vaccination: Yes Hx Influenza Vaccination: Yes Hx Pneumococcal Vaccination: No Review Of Systems Constitutional: Negative for: Fever, Chills Gastrointestinal: Negative for: Nausea, Vomiting, Diarrhea Neurological: Positive for: Headache. Negative for: Weakness, Numbness Physical Exam - Physical Exam Appears: Well, Non-toxic, No Acute Distress Skin: Normal Color, Warm, Dry Head: Atraumatic, Normacephalic Eye(s): bilateral: Normal Inspection Oral Mucosa: Moist Neck: Normal, Supple Chest: Symmetrical Cardiovascular: Rhythm Regular, No Murmur Respiratory: Normal Breath Sounds, No Rales, No Rhonchi, No Wheezing Gastrointestinal/Abdominal: Soft, No Tenderness Back: Normal Inspection, No CVA Tenderness Extremity: Normal ROM (x4), No Tenderness Neurological/Psych: Oriented x3, Normal Speech, Normal Cognition, Other (no focal deficits) Gait: Steady ED Course And Treatment - Laboratory Results Result Diagrams: 03/12/18 10:04 03/12/18 10:04 O2 Sat by Pulse Oximetry: 100 - CT Scan/US Head CT Other Rad Studies (CT/US): Interpreted By Me, Read By Radiologist CT/US Interpretation: PROCEDURE: CT HEAD WITHOUT CONTRAST. HISTORY: Headache x 3 weeks. COMPARISON: 07/07/2016. TECHNIQUE: Axial computed tomography images were obtained through the head/brain without intravenous contrast. Radiation dose: Total exam DLP = 871.50 mGy-cm. This CT exam was performed using one or more of the following dose reduction techniques: Automated exposure control, adjustment of the mA and/or kV according to patient size, and/ or use of iterative reconstruction technique. FINDINGS: HEMORRHAGE: No intracranial hemorrhage. BRAIN: No mass effect or edema. No atrophy or chronic microvascular ischemic changes. VENTRICLES: Unremarkable. No hydrocephalus. CALVARIUM: Unremarkable. PARANASAL SINUSES: Unremarkable as visualized. No significant inflammatory changes. MASTOID AIR CELLS: Unremarkable as visualized. No inflammatory changes. OTHER FINDINGS: None. IMPRESSION: Normal CT of the Head. No intracranial mass, hemorrhage or evidence of acute infarct. Progress Note: Head CT, blood work, UA ordered. Reglan and IV fluids administered. On re-evaluation patient feels better and is stable to be d/c home with PMD/Neuro follow up. Disposition - Disposition Referrals: Mark Enciso MD [Staff Provider] - Disposition: HOME/ ROUTINE Disposition Time: 12:17 Condition: IMPROVED Additional Instructions: Follow up with your PMD within 1-2 days. Return to ED if feel worse. Instructions: Headache, Adult Forms: [facility] (Nepalese) - Clinical Impression Clinical Impression: Headache - Scribe Statement The provider has reviewed the documentation as recorded by the Scribe Hermelinda Leigh All medical record entries made by the Scribe were at my direction and personally dictated by me. I have reviewed the chart and agree that the record accurately reflects my personal performance of the history, physical exam, medical decision making, and the department course for this patient. I have also personally directed, reviewed, and agree with the discharge instructions and disposition.
[2018-03-12 10:13] LABS: EOS # 0.1 K/uL (0.0-0.7); HEMOGLOBIN 15.9 g/dL (12.0-18.0); LYMPH # 1.6 K/uL (1.0-4.3); LYMPH % 42.2 % (20.0-40.0); MEAN CELL VOLUME 88.2 fL (80.0-94.0); MEAN CORPUSCULAR HEMOGLOBIN 29.6 pg (27.0-31.0); MEAN CORPUSCULAR HGB CONC 33.5 g/dL (33.0-37.0); MEAN PLATELET VOLUME 8.4 fL (7.2-11.7); MONO # 0.4 K/uL (0.0-0.8); MONO % 9.1 % (0.0-10.0); NEUT # 1.7 K/uL (1.8-7.0); NEUT % 45.7 % (50.0-75.0); RBC 5.39 Mil/uL (4.40-5.90); RED CELL DISTRIBUTION WIDTH 15.2 % (11.5-14.5); WHITE BLOOD COUNT 3.8 K/uL (4.8-10.8)
[2018-03-12 10:26] LABS: ALB/GLOB RATIO 1.2 (1.0-2.1); ALBUMIN 4.2 g/dL (3.5-5.0); ALT/SGPT 29 U/L (21-72); AST/SGOT 40 U/L (17-59); BLOOD UREA NITROGEN 12 mg/dL (9-20); CALCIUM 9.7 mg/dl (8.6-10.4); GFR AFRICAN-AMERICAN > 60; GFR NON-AFRICAN AMERICAN > 60
[2018-03-12 10:28] LABS: SQUAMOUS EPITHIAL < 1 /hpf (0-5); URINE BILIRUBIN NEGATIVE (NEGATIVE); URINE BLOOD NEGATIVE (NEGATIVE); URINE CLARITY Clear (Clear); URINE COLOR Yellow (YELLOW); URINE GLUCOSE (UA) NORMAL (Normal); URINE LEUKOCYTE ESTERASE NEG Leu/uL (Negative); URINE PROTEIN NEGATIVE (NEGATIVE); URINE UROBILINOGEN NORMAL mg/dL (0.2-1.0)
[2018-03-12 10:50] LABS: BARBITURATES, UR NEGATIVE (NEGATIVE); BENZODIAZEPINES, UR NEGATIVE (NEGATIVE); OPIATES, UR NEGATIVE (NEGATIVE); PHENCYCLIDINE, UR NEGATIVE (NEGATIVE)
--- NOTE | 2018-03-12 11:14 | CT ---
PROCEDURE: CT HEAD WITHOUT CONTRAST. HISTORY: Headache x 3 weeks COMPARISON: 07/07/2016 TECHNIQUE: Axial computed tomography images were obtained through the head/brain without intravenous contrast. Radiation dose: Total exam DLP = 871.50 mGy-cm. This CT exam was performed using one or more of the following dose reduction techniques: Automated exposure control, adjustment of the mA and/or kV according to patient size, and/or use of iterative reconstruction technique. FINDINGS: HEMORRHAGE: No intracranial hemorrhage. BRAIN: No mass effect or edema. No atrophy or chronic microvascular ischemic changes. VENTRICLES: Unremarkable. No hydrocephalus. CALVARIUM: Unremarkable. PARANASAL SINUSES: Unremarkable as visualized. No significant inflammatory changes. MASTOID AIR CELLS: Unremarkable as visualized. No inflammatory changes. OTHER FINDINGS: None. IMPRESSION: Normal CT of the Head. No intracranial mass, hemorrhage or evidence of acute infarct.
[2018-03-12 12:09] VITALS: BP 121/73; PULSE 54; RESP 20; TEMP 97.7
== END 2018-03-12 12:25 | disposition home or self-care (01) ==
LOC: C.ER 09:14
DX: R51 Headache (principal); I10 Essential (primary) hypertension; F17.200 Nicotine dependence, unspecified, uncomplicated
CPT/HCPCS: 70450; 80053; 81001; 85025; 85651; 96361; 96374; 99284; G0480; J2765; J7040